=== PATIENT | male | born 1960 | race Caucasian/White ===

== ENCOUNTER 2021-06-02 13:55 | Observation (INO) | payer OTHER ==
[2021-06-02] MEDS ORDERED: ONDANSETRON 4 MG/2 ML VIAL IVP STA (14:28)
[2021-06-02] MEDS ORDERED: SODIUM CHLORIDE 0.9% 1,000 ML IV ONE ×2 (14:29→16:47)
[2021-06-02 15:28] LABS: Basophils % (A) 0 %; Eosinophils # (A) 0.1 k/uL (0-0.7); Eosinophils % (A) 1 %; HCT 37.9 % (39.0-53.0); HGB 12.9 gm/dL (13.0-17.5); Lymphocytes # (A) 1.4 k/uL (1.0-4.8); Lymphocytes % (A) 17 %; MCHC 34.1 g/dL (31.0-37.0); Mean Platelet Volume 7.2; Monocytes # (A) 0.5 k/uL (0-1.0); Monocytes % (A) 7 %; Neutrophils # (A) 5.9 k/uL (1.3-7.7); Neutrophils % (A) 73 %; Platelet Count 223 k/uL (150-450); RBC 4.63 m/uL (4.30-5.90); WBC 8.1 k/uL (3.8-10.6)
[2021-06-02 15:42] LABS: ALT 20 U/L (4-49); AST 27 U/L (17-59); African American GFR (CKD) 34 (>60 ml/min/1.73 sqM); Albumin 3.3 g/dL (3.5-5.0); Alcohol <10 mg/dL; Alkaline Phosphatase 90 U/L (38-126); Amylase 40 U/L (30-110); Anion Gap 10 mmol/L; Blood Urea Nitrogen 48 mg/dL (9-20); Calcium 8.7 mg/dL (8.4-10.2); Carbon Dioxide 26 mmol/L (22-30); Chloride 94 mmol/L (98-107); Glucose 118 mg/dL (74-99); Lipase 52 U/L (23-300); Non-African American GFR(CKD) 30 (>60 ml/min/1.73 sqM); Potassium 4.1 mmol/L (3.5-5.1); Sodium 130 mmol/L (137-145); Total Bilirubin 0.5 mg/dL (0.2-1.3); Total Protein 5.8 g/dL (6.3-8.2)
[2021-06-02 16:38] LABS: Appearance,Urine Clear (Clear); Bilirubin,Urine Negative (Negative); Blood,Urine Negative (Negative); Color,Urine Yellow; Glucose,Urine (UA) Trace (Negative); Hyaline Casts,Urine 1 /lpf (0-2); Ketones,Urine Negative (Negative); Leukocyte Esterase,Urine Negative (Negative); Mucus,Urine Rare /hpf; Nitrite,Urine Negative (Negative); Protein,Urine 3+ (Negative); RBC,Urine 1 /hpf (0-5); Specific Gravity,Urine 1.012 (1.001-1.035); Urobilinogen,Urine <2.0 mg/dL (<2.0); WBC,Urine 1 /hpf (0-5)
[2021-06-02 16:46] LABS: Amphetamine Screen,Urine Not Detected (NotDetected); Barbiturate Screen,Urine Not Detected (NotDetected); Benzodiazepines Screen,Urine Not Detected (NotDetected); Cocaine Screen,Urine Not Detected (NotDetected); Methadone Screen, Urine Not Detected (NotDetected); Opiate Screen,Urine Not Detected (NotDetected); Oxycodone Screen, Urine Not Detected (NotDetected); Phencyclidine Screen,Urine Not Detected (NotDetected); Tricyclic Antidepressant,Urine Not Detected (NotDetected); Urn Cannabinoid Scrn Detected (NotDetected)
[2021-06-02] MEDS ORDERED: NALOXONE 0.4 MG/ML 1 ML VIAL IV PRN (16:47)
[2021-06-02 17:55] LABS: Glucose,Whole Blood 76 mg/dL (75-99)
[2021-06-02] MEDS: INSULIN ASPART (NovoLOG) 100 UNIT/ML VIAL SQ SCH (17:55)
[2021-06-02] MEDS ORDERED: MELATONIN 5 MG TABLET PO PRN (17:57)
[2021-06-02] MEDS ORDERED: MECLIZINE 25 MG TAB PO PRN (17:57)
--- NOTE | 2021-06-02 17:57 | ED ---
General Adult HPI - General Chief complaint: Nausea/Vomiting/Diarrhea Stated complaint: dehydration/vomiting Time Seen by Provider: 06/02/21 14:12 Source: patient, EMS, RN notes reviewed, old records reviewed Mode of arrival: EMS Limitations: no limitations - History of Present Illness Initial comments: I evaluated the patient when he was placed in a room. Patient is a 60-year-old male with past medical history remarkable for depression, diabetes, CAD, angina, eye surgery with chronic vertigo and nausea and vomiting presents emergency department over concern for possible dehydration. Patient has been having chronic vertiginous symptoms. He states there were worse last week and is also developing what he thought was a stomach bug. States she was having some diarrhea as well as nausea and vomiting. He states that the symptoms have improved, however he was sent here to be evaluated. He denies any current abdominal pain, nausea, vomiting. Denies any current diarrhea. He states he has been having less by mouth intake over this period of time. Denies any chest pain, shortness of breath. Denies any headaches, lightheadedness. Patient seems most concerned with recent onset depression, and states that he is concerned about his depression at this time. He used to see a therapist but has not followed up with one in quite some time. Denies any suicidal, homicidal ideations. Denies any visual or auditory hallucinations. He has no other acute complaint at this time. - Related Data Home Medications Medication Instructions Recorded Confirmed ARIPiprazole [Abilify] 2 mg PO HS@199906/02/21 06/02/21 Aspirin EC [Ecotrin Low Dose] 81 mg PO DAILY@0800 06/02/21 06/02/21 Atorvastatin [Lipitor] 80 mg PO HS@199906/02/21 06/02/21 Chlorhexidine Gluconate [Hibiclens] 1 applic TOPICAL HS@199906/02/21 06/02/21 Furosemide [Lasix] 20 mg PO DAILY@0800 06/02/21 06/02/21 Gabapentin [Neurontin] 100 mg PO HS@199906/02/21 06/02/21 Insulin Glargine,Hum.rec.anlog 24 units SQ HS@199906/02/21 06/02/21 [Tye Urias] Insulin Lispro [humaLOG Kwikpen] See Protocol SQ AC-TID 06/02/21 06/02/21 Isosorbide Mononitrate ER [Imdur] 30 mg PO DAILY@0800 06/02/21 06/02/21 Loratadine-Pseudoeph 10-240 mg 1 tab PO DAILY@0800 06/02/21 06/02/21 [Claritin-D 24 Hour] Losartan Potassium 100 mg PO DAILY@0800 06/02/21 06/02/21 Meclizine [Antivert] 25 mg PO TID PRN 06/02/21 06/02/21 Melatonin 10 mg PO HS PRN 06/02/21 06/02/21 Metoprolol Succinate (ER) [Toprol 100 mg PO DAILY@0800 06/02/21 06/02/21 Xl] Sertraline [Zoloft] 100 mg PO DAILY@0800 06/02/21 06/02/21 Tamsulosin HCl [Flomax] 0.4 mg PO DAILY@0800 06/02/21 06/02/21 hydroCHLOROthiazide [Hydrodiuril] 50 mg PO DAILY@0800 06/02/21 06/02/21 metFORMIN HCL [Glucophage] 1,000 mg PO AC-BID@0800,1700 06/02/21 06/02/21 Allergies Allergy/AdvReac Type Severity Reaction Status Date / Time No Known Allergies Allergy Verified 06/02/21 17:03 Review of Systems ROS Statement: Those systems with pertinent positive or pertinent negative responses have been documented in the HPI. Review of Systems: CONST: Denies fever EYES: Denies blurry vision ENT: Denies nasal congestion C/V: Denies Chest pain RESP: Denies shortness of breath GI: Denies abdominal pain : Denies dysuria SKIN: Denies rash. MSK: Denies joint pain. NEURO: Denies headache PSYCH: Denies suicidal and homicidal ideations/plans/attempts. Denies visual or auditory hallucinations. He endorses depression ROS Other: All systems not noted in ROS Statement are negative. Past Medical History Past Medical History: Coronary Artery Disease (CAD), Chest Pain / Angina, Diabetes Mellitus, Syncope Additional Past Medical History / Comment(s): Sleep Apnea History of Any Multi-Drug Resistant Organisms: None Reported Past Surgical History: Coronary Bypass/CABG Additional Past Surgical History / Comment(s): CABG in 2013 Past Psychological History: Anxiety, Depression Smoking Status: Never smoker Past Alcohol Use History: None Reported Past Drug Use History: None Reported General Exam - General Exam Comments Initial Comments: General: Appears in no acute distress. HEAD: Normal with no signs of head trauma. EYES: PERRLA, EOMI, conjunctiva normal, no discharge. Pupils are 3 mm and equal bilaterally. Patient has poor visual acuity at baseline secondary to prior eye surgeries. ENT: Hearing grossly intact, normal oropharynx. RESPIRATORY: Clear breath sounds bilaterally. No wheezes, rales, or rhonchi. C/V: Regular rate and rhythm. S1 and S2 auscultated, no edema, peripheral pulses 2+ and intact throughout ABD: Abd is soft, nontender, nondistended EXT: Normal range of motion, no obvious deformity SKIN: No rashes or lesions observed on exposed skin. Old shins skin abrasions. NEURO: Alert and oriented x 4. Cranial nerves II-XII intact. No focal sensory or strength deficits. NIH is 0. GCS is 15. Limitations: no limitations Course Vital Signs 06/02/21 06/02/21 14:04 15:15 Temperature 98 F Pulse Rate 77 76 Respiratory 18 18 Rate Blood Pressure 148/75 126/71 O2 Sat by Pulse 100 98 Oximetry Medical Decision Making - Medical Decision Making Based on the patient's presentation and physical exam, I'm concerned for acute dehydration as he has not been staying hydrated per the patient over the last few days. This is secondary to what is likely a viral gastroenteritis. However due to his history of diabetes, we will obtain basic laboratory studies. He otherwise is asymptomatic at this time. He is requesting to talk with cheryl thapa. I believe this is reasonable. He will be given a 1 L fluid bolus as well as Zofran at this time. Patient's laboratory studies were remarkable for a normocytic anemia with a hemoglobin of 10.9. Patient has mild hyponatremia of 130 mild hypochloremia of 94. Patient has an elevated BUN/creatinine 40 and 2.2 without a history of CK D per patient. Unknown baseline. Patient's urinalysis is unremarkable. Marijuana is found in the UDS. Alcohol level is negative. Negative acetones. Reevaluation come patient is time by mouth intake at this time. I did inform him that I would like to admit him to the hospital for IV hydration and for psychiatry to evaluate the patient. He was in agreement with this plan. I spoke with the admitting physician under Dr. Gregory who accepted the p atient. Patient was therefore admitted in serous condition. I will consult psychiatry to evaluate the patient on an inpatient basis. - Lab Data Result diagrams: 06/02/21 15:20 06/02/21 15:20 Lab Results 06/02/21 06/02/21 06/02/21 Range/Units 15:20 15:20 16:24 WBC 8.1 (3.8-10.6) k/uL RBC 4.63 (4.30-5.90) m/uL Hgb 12.9 L (13.0-17.5) gm/dL Hct 37.9 L (39.0-53.0) % MCV 82.0 (80.0-100.0) fL MCH 28.0 (25.0-35.0) pg MCHC 34.1 (31.0-37.0) g/dL RDW 13.0 (11.5-15.5) % Plt Count 223 (150-450) k/uL MPV 7.2 Neutrophils % 73 % Lymphocytes % 17 % Monocytes % 7 % Eosinophils % 1 % Basophils % 0 % Neutrophils # 5.9 (1.3-7.7) k/uL Lymphocytes # 1.4 (1.0-4.8) k/uL Monocytes # 0.5 (0-1.0) k/uL Eosinophils # 0.1 (0-0.7) k/uL Basophils # 0.0 (0-0.2) k/uL Sodium 130 L (137-145) mmol/L Potassium 4.1 (3.5-5.1) mmol/L Chloride 94 L (98-107) mmol/L Carbon Dioxide 26 (22-30) mmol/L Anion Gap 10 mmol/L BUN 48 H (9-20) mg/dL Creatinine 2.28 H (0.66-1.25) mg/dL Est GFR (CKD-EPI)AfAm 34 (>60 ml/min/1.73 sqM) Est GFR (CKD-EPI)NonAf 30 (>60 ml/min/1.73 sqM) Glucose 118 H (74-99) mg/dL Calcium 8.7 (8.4-10.2) mg/dL Total Bilirubin 0.5 (0.2-1.3) mg/dL AST 27 (17-59) U/L ALT 20 (4-49) U/L Alkaline Phosphatase 90 (38-126) U/L Total Protein 5.8 L (6.3-8.2) g/dL Albumin 3.3 L (3.5-5.0) g/dL Amylase 40 (30-110) U/L Lipase 52 (23-300) U/L Urine Color Yellow Urine Appearance Clear (Clear) Urine pH 6.0 (5.0-8.0) Ur Specific [place] 1.012 (1.001-1.035) Urine Protein 3+ H (Negative) Urine Glucose (UA) Trace H (Negative) Urine Ketones Negative (Negative) Urine Blood Negative (Negative) Urine Nitrite Negative (Negative) Urine Bilirubin Negative (Negative) Urine Urobilinogen <2.0 (<2.0) mg/dL Ur Leukocyte Esterase Negative (Negative) Urine RBC 1 (0-5) /hpf Urine WBC 1 (0-5) /hpf Hyaline Casts 1 (0-2) /lpf Urine Mucus Rare H (None) /hpf Urine Opiates Screen (NotDetected) Ur Oxycodone Screen (NotDetected) Urine Methadone Screen (NotDetected) Ur Propoxyphene Screen (NotDetected) Ur Barbiturates Screen (NotDetected) U Tricyclic Antidepress (NotDetected) Ur Phencyclidine Scrn (NotDetected) Ur Amphetamines Screen (NotDetected) U Methamphetamines Scrn (NotDetected) U Benzodiazepines Scrn (NotDetected) Urine Cocaine Screen (NotDetected) U Marijuana (THC) Screen (NotDetected) Serum Alcohol <10 mg/dL Acetone, Qual Negative (Negative) 06/02/21 Range/Units 16:24 WBC (3.8-10.6) k/uL RBC (4.30-5.90) m/uL Hgb (13.0-17.5) gm/dL Hct (39.0-53.0) % MCV (80.0-100.0) fL MCH (25.0-35.0) pg MCHC (31.0-37.0) g/dL RDW (11.5-15.5) % Plt Count (150-450) k/uL MPV Neutrophils % % Lymphocytes % % Monocytes % % Eosinophils % % Basophils % % Neutrophils # (1.3-7.7) k/uL Lymphocytes # (1.0-4.8) k/uL Monocytes # (0-1.0) k/uL Eosinophils # (0-0.7) k/uL Basophils # (0-0.2) k/uL Sodium (137-145) mmol/L Potassium (3.5-5.1) mmol/L Chloride (98-107) mmol/L Carbon Dioxide (22-30) mmol/L Anion Gap mmol/L BUN (9-20) mg/dL Creatinine (0.66-1.25) mg/dL Est GFR (CKD-EPI)AfAm (>60 ml/min/1.73 sqM) Est GFR (CKD-EPI)NonAf (>60 ml/min/1.73 sqM) Glucose (74-99) mg/dL Calcium (8.4-10.2) mg/dL Total Bilirubin (0.2-1.3) mg/dL AST (17-59) U/L ALT (4-49) U/L Alkaline Phosphatase (38-126) U/L Total Protein (6.3-8.2) g/dL Albumin (3.5-5.0) g/dL Amylase (30-110) U/L Lipase (23-300) U/L Urine Color Urine Appearance (Clear) Urine pH (5.0-8.0) Ur Specific [place] (1.001-1.035) Urine Protein (Negative) Urine Glucose (UA) (Negative) Urine Ketones (Negative) Urine Blood (Negative) Urine Nitrite (Negative) Urine Bilirubin (Negative) Urine Urobilinogen (<2.0) mg/dL Ur Leukocyte Esterase (Negative) Urine RBC (0-5) /hpf Urine WBC (0-5) /hpf Hyaline Casts (0-2) /lpf Urine Mucus (None) /hpf Urine Opiates Screen Not Detected (NotDetected) Ur Oxycodone Screen Not Detected (NotDetected) Urine Methadone Screen Not Detected (NotDetected) Ur Propoxyphene Screen Not Detected (NotDetected) Ur Barbiturates Screen Not Detected (NotDetected) U Tricyclic Antidepress Not Detected (NotDetected) Ur Phencyclidine Scrn Not Detected (NotDetected) Ur Amphetamines Screen Not Detected (NotDetected) U Methamphetamines Scrn Not Detected (NotDetected) U Benzodiazepines Scrn Not Detected (NotDetected) Urine Cocaine Screen Not Detected (NotDetected) U Marijuana (THC) Screen Detected H (NotDetected) Serum Alcohol mg/dL Acetone, Qual (Negative) Disposition Clinical Impression: JOSSUE (acute kidney injury), Dehydration, Depression, Encounter for psychiatric assessment Disposition: ADMITTED IP TO THIS [facility] Condition: Stable Referrals: Casper Murcia MD [Primary Care Provider] - 1-2 days
[2021-06-02] MEDS: ATORVASTATIN 80 MG TAB PO SCH (21:47)
[2021-06-02] MEDS: SODIUM CHLORIDE 0.9% 1,000 ML IV SCH (21:49)
[2021-06-02] MEDS: ARIPiprazole 2 MG TAB PO SCH (22:07)
[2021-06-02] MEDS: GABAPENTIN 100 MG CAP PO SCH (22:07)
[2021-06-02 23:35] LABS: Glucose,Whole Blood 71 mg/dL (75-99)
--- NOTE | 2021-06-03 03:38 | P.HPIM ---
History of Present Illness H&P Date: 06/02/21 Chief Complaint: Dehydration 60-year-old male with diabetes mellitus, coronary artery disease, chronic vertigo Patient has been dealing with GI symptoms for about 4-5 days reporting some nausea vomiting and diarrhea denies any GI bleeding. He said all the symptoms started after having the flu shot last week. The symptoms persisted up until yesterday was associated with poor by mouth intake. He was evaluated by his visiting doctor today and he was told that he is dehydrated and should go to the hospital for evaluation. Patient also reports chronic vertigo symptoms since he had some corrective eye surgery that went wrong and was complicated until eventually he had to see a different eye doctor to perform another surgery to fix his lens however despite that he continued to have episodes of vertigo. Currently he denies any dizziness or lightheadedness he denies any vertigo symptoms. He denies any ongoing nausea vomiting or diarrhea. He denies any abdominal pain chest pain or shortness of breath. He does report decreased by mouth intake. His main concern is depressed mood he feels overwhelmed helpless and hopeless. He denies any suicidal or homicidal ideation he denies any auditory or visual hallucinations. He's been trying to see a psychiatrist or therapist for a while however he cannot afford to do that. He's been feeling fatigued with poor sleep quality and decreased by mouth intake. But again he denies any suicidal ideation He has been diabetic for a long time he is on insulin. 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 He denies any lesions or wounds over his feet Patient also complains of PTSD and anxiety since he had that faulty eye surgery. In the ED blood work showed acute kidney injury with possible dehydration. EKG was normal sinus rhythm. Hemoglobin 12.9, sodium was 1:30 Review of Systems Pertinent positives as noted in HPI. All other systems were reviewed and are negative Past Medical History Past Medical History: Coronary Artery Disease (CAD), Chest Pain / Angina, Diabetes Mellitus, Syncope Additional Past Medical History / Comment(s): Sleep Apnea History of Any Multi-Drug Resistant Organisms: None Reported Past Surgical History: Coronary Bypass/CABG Additional Past Surgical History / Comment(s): CABG in 2013 Past Psychological History: Anxiety, Depression Smoking Status: Never smoker Past Alcohol Use History: None Reported Past Drug Use History: None Reported - Past Family History Family Family Medical History: No Reported History Medications and Allergies Home Medications Medication Instructions Recorded Confirmed Type ARIPiprazole [Abilify] 2 mg PO HS@199906/02/21 06/02/21 History Aspirin EC [Ecotrin Low Dose] 81 mg PO DAILY@0800 06/02/21 06/02/21 History Atorvastatin [Lipitor] 80 mg PO HS@199906/02/21 06/02/21 History Chlorhexidine Gluconate [Hibiclens] 1 applic TOPICAL HS@199906/02/21 06/02/21 History Furosemide [Lasix] 20 mg PO DAILY@0806/02/21 06/02/21 History Gabapentin [Neurontin] 100 mg PO HS@199906/02/21 06/02/21 History Insulin Glargine,Hum.rec.anlog 24 units SQ HS@199906/02/21 06/02/21 History [[place] [employer] Solostar] Insulin Lispro [humaLOG Kwikpen] See Protocol SQ AC-TID 06/02/21 06/02/21 History Isosorbide Mononitrate ER [Imdur] 30 mg PO DAILY@0800 06/02/21 06/02/21 History Loratadine-Pseudoeph 10-240 mg 1 tab PO DAILY@0800 06/02/21 06/02/21 History [Claritin-D 24 Hour] Losartan Potassium 100 mg PO DAILY@0800 06/02/21 06/02/21 History Meclizine [Antivert] 25 mg PO TID PRN 06/02/21 06/02/21 History Melatonin 10 mg PO HS PRN 06/02/21 06/02/21 History Metoprolol Succinate (ER) [Toprol 100 mg PO DAILY@0800 06/02/21 06/02/21 History Xl] Sertraline [Zoloft] 100 mg PO DAILY@0800 06/02/21 06/02/21 History Tamsulosin HCl [Flomax] 0.4 mg PO DAILY@0800 06/02/21 06/02/21 History hydroCHLOROthiazide [Hydrodiuril] 50 mg PO DAILY@0800 06/02/21 06/02/21 History metFORMIN HCL [Glucophage] 1,000 mg PO AC-BID@0800,1700 06/02/21 06/02/21 History Allergies Allergy/AdvReac Type Severity Reaction Status Date / Time No Known Allergies Allergy Verified 06/02/21 17:03 Physical Exam Vitals: Vital Signs Temp Pulse Resp BP Pulse Ox 06/02/21 18:00 77 18 98 06/02/21 17:00 76 18 98 06/02/21 16:00 72 18 98 06/02/21 15:15 76 18 126/71 98 06/02/21 14:04 98 F 77 18 148/75 100 Intake and Output 06/02/21 06/02/21 06/02/21 06:59 14:59 22:59 Other: Weight 78.925 kg Constitutional: No acute distress, conversant, pleasant Eyes: Anicteric sclerae, moist conjunctiva, Pupils equal round reactive to light ENMT: NC/AT Oropharynx clear, no erythema, or exudates Neck: Supple, FROM, no masses, or JVD No carotid bruits No thyromegaly Lungs: Clear to auscultation Clear to percussion Normal respiratory effort, no accessory muscle use Cardiovascular: Heart regular in rate and rhythm, No murmurs, gallops, or rubs No peripheral edema Abdominal: Soft Nontender, no guarding, rebound or rigidity Abdomen moving with respiration Normoactive bowel sounds No hepatomegaly, No splenomegaly No palpable mass No abdominal wall hernia noted Skin: Normal temperature, tone, texture, turgor No induration No subcutaneous nodules No rash, lesions No ulcers Extremities: No digital cyanosis No clubbing Pedal pulses intact and symmetrical Radial pulses intact and symmetrical No calf tenderness Psychiatric: Alert and oriented to person, place and time Appropriate affect fair judgement Neuro Muscles Strength 5/5 in all 4 extremities Sensation to light touch grossly present throughout Cranial nerves II-XII grossly intact No focal sensory deficits Lymphatics: no palpable cervical or supraclavicular , or inguinal lymph nodes Results CBC & Chem 7: 06/02/21 15:20 06/02/21 15:20 Labs: Abnormal Lab Results - Last 24 Hours (Table) 06/02/21 06/02/21 06/02/21 Range/Units 15:20 15:20 16:24 Hgb 12.9 L (13.0-17.5) gm/dL Hct 37.9 L (39.0-53.0) % Sodium 130 L (137-145) mmol/L Chloride 94 L (98-107) mmol/L BUN 48 H (9-20) mg/dL Creatinine 2.28 H (0.66-1.25) mg/dL Glucose 118 H (74-99) mg/dL Total Protein 5.8 L (6.3-8.2) g/dL Albumin 3.3 L (3.5-5.0) g/dL Urine Protein 3+ H (Negative) Urine Glucose (UA) Trace H (Negative) Urine Mucus Rare H (None) /hpf U Marijuana (THC) Screen (NotDetected) 06/02/21 Range/Units 16:24 Hgb (13.0-17.5) gm/dL Hct (39.0-53.0) % Sodium (137-145) mmol/L Chloride (98-107) mmol/L BUN (9-20) mg/dL Creatinine (0.66-1.25) mg/dL Glucose (74-99) mg/dL Total Protein (6.3-8.2) g/dL Albumin (3.5-5.0) g/dL Urine Protein (Negative) Urine Glucose (UA) (Negative) Urine Mucus (None) /hpf U Marijuana (THC) Screen Detected H (NotDetected) Assessment and Plan Assessment: Acute kidney injury most likely secondary to prerenal ATN from dehydration and decreased by mouth intake Recent acute gastritis symptoms resolved Hypovolemic Hyponatremia Supportive care Avoid nephrotoxic meds IV fluid hydration with normal saline Monitor urine output Monitor renal function Depressed mood Denies suicidal ideation Psych consultation Diabetes mellitus Hold oral hypoglycemic agent Insulin sliding scale Check A1c History of CAD resume home medications Patient denies any tobacco smoking illegal drugs or chronic alcohol use Patient is full code Anticipated length of stay less than 2 midnights Anticipated discharged, pending clinical course and psych eval DVT prophylaxis heparin subcu 3 times a day
[2021-06-03] MEDS: SODIUM CHLORIDE 0.9% 1,000 ML IV SCH ×2 (05:20→12:41)
[2021-06-03 07:24] LABS: Glucose,Whole Blood 115 mg/dL (75-99)
[2021-06-03] MEDS: INSULIN ASPART (NovoLOG) 100 UNIT/ML VIAL SQ SCH ×3 (07:39→17:42)
[2021-06-03] MEDS ORDERED: FUROSEMIDE 20 MG TAB PO SCH (08:00)
[2021-06-03] MEDS ORDERED: metFORMIN 500 MG TAB PO SCH (08:00)
[2021-06-03] MEDS ORDERED: LOSARTAN 50 MG TAB PO SCH (08:00)
[2021-06-03 08:26] LABS: African American GFR (CKD) 44 (>60 ml/min/1.73 sqM); Anion Gap 8 mmol/L; Blood Urea Nitrogen 41 mg/dL (9-20); Calcium 8.2 mg/dL (8.4-10.2); Carbon Dioxide 25 mmol/L (22-30); Chloride 98 mmol/L (98-107); Glucose 104 mg/dL (74-99); Magnesium 1.6 mg/dL (1.6-2.3); Non-African American GFR(CKD) 38 (>60 ml/min/1.73 sqM); Potassium 3.9 mmol/L (3.5-5.1); Sodium 131 mmol/L (137-145)
[2021-06-03 08:32] LABS: Basophils % (A) 0 %; Eosinophils # (A) 0.1 k/uL (0-0.7); Eosinophils % (A) 2 %; HCT 35.4 % (39.0-53.0); HGB 12.5 gm/dL (13.0-17.5); Hyperchromasia Slight; Lymphocytes # (A) 1.3 k/uL (1.0-4.8); Lymphocytes % (A) 15 %; MCH 28.3 pg (25.0-35.0); MCHC 35.3 g/dL (31.0-37.0); MCV 80.3 fL (80.0-100.0); Mean Platelet Volume 7.3; Monocytes # (A) 0.6 k/uL (0-1.0); Monocytes % (A) 7 %; Neutrophils # (A) 6.2 k/uL (1.3-7.7); Neutrophils % (A) 74 %; Platelet Count 200 k/uL (150-450); RBC 4.41 m/uL (4.30-5.90); RDW 13.4 % (11.5-15.5); WBC 8.5 k/uL (3.8-10.6)
[2021-06-03] MEDS: ISOSORBIDE MONONITRATE ER 30 MG TAB.ER.24H PO SCH (10:11)
[2021-06-03] MEDS: METOPROLOL SUCCINATE (ER) 100 MG TAB.ER.24H PO SCH (10:11)
[2021-06-03] MEDS: TAMSULOSIN 0.4 MG CAP.ER.24H PO SCH (10:11)
[2021-06-03] MEDS: LORATADINE-PSEUDOEPH 5-120 MG 1 EACH TAB.ER.12H PO SCH ×2 (10:11→20:44)
[2021-06-03] MEDS: ASPIRIN 81 MG PO SCH (10:11)
[2021-06-03] MEDS: SERTRALINE 100 MG TAB PO SCH (10:12)
[2021-06-03 12:07] LABS: Glucose,Whole Blood 112 mg/dL (75-99)
--- NOTE | 2021-06-03 12:13 | P.PN ---
Subjective Patient is complaining of having diarrhea today. I asked him how many bowel movements a day but he has since yesterday he told the only one. He denies any blood in his stool. No abdominal pain. Objective - Vital Signs Vital signs: Vital Signs Temp 97.5 F L 06/03/21 04:35 Pulse 80 06/03/21 04:35 Resp 20 06/03/21 04:35 BP 177/91 06/03/21 04:35 Pulse Ox 97 06/03/21 04:35 Intake & Output 06/02/21 06/03/21 06/03/21 18:59 06:59 18:59 Intake Total 100 Balance 100 Weight 78.925 kg 78.925 kg Intake: Oral 100 Other: Voiding Method Toilet # Voids 1 - Exam General: The patient is awake and alert, in no distress Eye: there is normal conjunctiva bilaterally. Neck: The neck is supple, there is no JVD. Cardiovascular: Normal S1-S2, no S3-S4, no murmurs. Respiratory: Lungs clear to auscultation bilaterally Gastrointestinal: Abdomen is soft, nontender Musculoskeletal: There is no pedal edema. Neurological:. Speech is normal. Skin: Skin is warm and dry - Labs CBC & Chem 7: 06/03/21 07:30 06/03/21 07:30 Labs: Abnormal Lab Results - Last 24 Hours (Table) 06/02/21 06/02/21 06/02/21 Range/Units 15:20 15:20 16:24 Hgb 12.9 L (13.0-17.5) gm/dL Hct 37.9 L (39.0-53.0) % Sodium 130 L (137-145) mmol/L Chloride 94 L (98-107) mmol/L BUN 48 H (9-20) mg/dL Creatinine 2.28 H (0.66-1.25) mg/dL Glucose 118 H (74-99) mg/dL POC Glucose (mg/dL) (75-99) mg/dL Calcium (8.4-10.2) mg/dL Total Protein 5.8 L (6.3-8.2) g/dL Albumin 3.3 L (3.5-5.0) g/dL Urine Protein 3+ H (Negative) Urine Glucose (UA) Trace H (Negative) Urine Mucus Rare H (None) /hpf U Marijuana (THC) Screen (NotDetected) 06/02/21 06/02/21 06/03/21 Range/Units 16:24 23:33 07:22 Hgb (13.0-17.5) gm/dL Hct (39.0-53.0) % Sodium (137-145) mmol/L Chloride (98-107) mmol/L BUN (9-20) mg/dL Creatinine (0.66-1.25) mg/dL Glucose (74-99) mg/dL POC Glucose (mg/dL) 71 L 115 H (75-99) mg/dL Calcium (8.4-10.2) mg/dL Total Protein (6.3-8.2) g/dL Albumin (3.5-5.0) g/dL Urine Protein (Negative) Urine Glucose (UA) (Negative) Urine Mucus (None) /hpf U Marijuana (THC) Screen Detected H (NotDetected) 06/03/21 06/03/21 06/03/21 Range/Units 07:30 07:30 12:05 Hgb 12.5 L (13.0-17.5) gm/dL Hct 35.4 L (39.0-53.0) % Sodium 131 L (137-145) mmol/L Chloride (98-107) mmol/L BUN 41 H (9-20) mg/dL Creatinine 1.87 H (0.66-1.25) mg/dL Glucose 104 H (74-99) mg/dL POC Glucose (mg/dL) 112 H (75-99) mg/dL Calcium 8.2 L (8.4-10.2) mg/dL Total Protein (6.3-8.2) g/dL Albumin (3.5-5.0) g/dL Urine Protein (Negative) Urine Glucose (UA) (Negative) Urine Mucus (None) /hpf U Marijuana (THC) Screen (NotDetected) Assessment and Plan Assessment: This is a 60-year-old male with complex past medical history noted below presented to the hospital with nausea/vomiting and dehydration . Patient was evaluated in the ER and admitted to the hospital for further management of his medical problems noted below. 1. Acute kidney injury. Baseline creatinine unknown. Continue IV fluid hydration and repeat lab work in the morning. Check bladder scan to rule out retention. Also kidney ultrasound to rule out hydronephrosis 2. Hypovolemic hyponatremia 3. Depression without suicidal ideation. Psychiatry consulted by admitting provider 4. Type 2 diabetes, continue sliding scale insulin and hold oral agents 5. Coronary artery disease Today, I reviewed his medication list and lab work results. Continue current regimen. Repeat lab work in the morning.
--- NOTE | 2021-06-03 13:44 | P.CN ---
Psychiatric Consult - . Consult date: 06/03/21 Consult:: IDENTIFYING DATA: The patient is 60-year-old male is currently a resident at [facility] HISTORY OF PRESENT ILLNESS: He presented to the ED on 06/02/2021 with complaints of chronic vertigo, nausea, vomiting and diarrhea. During his assessment in the ED he requested to speak with a psychiatrist. He was evaluated and admitted to the medical unit for evaluation and management of dehydration. I reviewed the medical record and interviewed the patient. He complained about his living situation and the abrupt changes in his life since he moved into [facility]. He stated that he was living independently in the apartment at [facility] for several years. He was working gainfully full-time and managing his own life. 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 He talked about having difficulties with walking down the stairs in the apartment (he lives on the second floor), shopping, cooking, reading food packaging and falling. His difficulties with independence progress to where his brother, who lives in [place], was spending more and more time in [place] caring for him. The patient stated that his brother is on the board for [facility] and recommended placement at [facility] or helpless assisted living. He has no complaints about the services provided at the assisted living center. However, he has difficulty with living in a small room and sharing the communal areas with other residents who are much lower functioning than him. Another source of his distress to his difficulty with continuing to meet with a therapist via telehealth. His diabetic group in [place] has a therapist whom he met one to one when he was living in [place]. He tried to continue with the service but the Internet connection at [facility] was not adequate. He described increasing feelings of helplessness and hopelessness. He finds himself withdrawing to his room and sleeping more during the day that he had the past. He described other symptoms of depression such as decreased energy and decreased enjoyment in usual activities. He specifically denied that he was experiencing suicidal ideation, attempt or plan. He denied persistent and uncontrolled anxiety, panic attack, obsessions or compulsions. He denied experiencing periods of elevated mood or sustained irritability suggestive of linette or hypomania. He denied experiencing psychotic symptoms such as paranoia, hallucinations or confusion. He does not drink or use drugs on his own. PAST PSYCHIATRIC HISTORY: He had no history of psychiatric treatment until the decline in his health. Approximately December of this year he expressed what he described as hopelessness feelings to his brother will interpret them and suicidal thoughts and referred him for admission to [facility]. He described his experience at [facility] psychiatric facility as extremely traumatic. He denied other psychiatric hospitalizations. He has never met with a psychiatrist outside of his stay at [facility]. As mentioned above, he met with a therapist through his diabetic group in [place]. PAST MEDICAL HISTORY: He has multiple medical problems including coronary artery disease, diabetes mellitus, decreased hearing, impaired vision and chronic vertigo. ALLERGIES: Known drug ALLERGIES SUBSTANCE USE HISTORY: History of substance use problems FAMILY PSYCHIATRIC/SUBSTANCE USE HISTORY: Over family history of mental illness SOCIAL HISTORY: Is born and raised in [place]. He graduated high school and eventually received a bachelor's degree in [employer] from [employer]. He has been and twice. He has 1 biological son and one adopted daughter. He worked in [place] for most of his working life. He moved from his apartment to assisted living in January 2021. He talked about having been incarcerated in the past for traffic-related violations. His brother has DURABLE POWER OF MAGNETIC GRINDER OPERATOR. MENTAL STATUS EXAM: He presented as a casually groomed 60-year-old male who is resting comfortably in his hospital bed. He made eye contact and attended to the interview. He had no distinction features are prominent physical abnormalities. He had a bright facial expression. He was alert and oriented to person, place and time. He has slight psychomotor retardation but no abnormal involuntary movements. I did not evaluate his gait. His speech was spontaneous with slight decrease in rate and rhythm. He had no articulation difficulties. His affect was depressed but reactive. He denied suicidal ideation or wishes. He denied homicidal ideation. He expressed feelings of helplessness but denied worthlessness or hopelessness. He ruminated about his medical problems and a general decline in his ability to care for himself over the last 6-12 months. He did not express ideas reference, paranoid ideation or delusions. His thinking was abstract and associations were coherent, logical goal-directed. He denied hallucinations and did not appear to responding to internal stimuli. Global impression of intellect is average to a evaristo. He is aware of his illnesses and need for treatment. IMPRESSIONS: He is a male presented to [facility] with nausea, vomiting and diarrhea and was admitted for a minimum of acute dehydration. He requested a psychiatric consult and complained of feelings of depression and the loss of ability to care for himself that resulted in placement in an assisted-living program. He is unhappy with the assisted-living but does not at the current time have alternatives. He was meeting with therapist but could not continue [id number] meetings when he moved from [place] to [facility]. In addition, the Internet connection at [facility] would not allow telehealth. He would benefit from continued outpatient mental health treatment and should be referred for outpatient individual therapy. 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 RECOMMENDATION: There is no indication for admission to the psychiatric unit. He has decision-making capacity at this time and is able to reason through communicate/pressure risk, benefits and alternatives to treatment. Continue Zoloft 100 mg daily. Consult social work for referral for outpatient mental health services. Thank you for this consult. Psychiatry will sign off on the case. 06/03/21 13:21
[2021-06-03] MEDS: LOPERAMIDE 2 MG CAP PO PRN ×2 (16:05→23:14)
[2021-06-03 17:14] LABS: Glucose,Whole Blood 188 mg/dL (75-99)
--- NOTE | 2021-06-03 17:40 | US ---
EXAMINATION TYPE: US kidneys/renal and bladder DATE OF EXAM: 06/03/2021 COMPARISON: NONE CLINICAL HISTORY: JOSSUE. Inpatient for dehydration due to diarrhea per patient. EXAM MEASUREMENTS: Right Kidney: 11.3 x 8.1 x 6.2 cm Left Kidney: 12.8 x 6.8 x 5.6 cm Post Void Residual Volume: not assessed on inpatient Right Kidney: No hydronephrosis or masses seen Left Kidney: No hydronephrosis or masses seen Bladder: wnl Bilateral Jets seen: yes IMPRESSION: Normal exam. No evidence of renal mass or obstruction.
[2021-06-03 20:43] LABS: Glucose,Whole Blood 234 mg/dL (75-99)
[2021-06-03] MEDS: ATORVASTATIN 80 MG TAB PO SCH (20:43)
[2021-06-03] MEDS: ARIPiprazole 2 MG TAB PO SCH (20:43)
[2021-06-03] MEDS: GABAPENTIN 100 MG CAP PO SCH (20:44)
[2021-06-04 05:13] VITALS: TEMP 97.9
[2021-06-04 07:04] LABS: Glucose,Whole Blood 115 mg/dL (75-99)
[2021-06-04] MEDS: INSULIN ASPART (NovoLOG) 100 UNIT/ML VIAL SQ SCH ×2 (07:21→13:15)
[2021-06-04] MEDS: TAMSULOSIN 0.4 MG CAP.ER.24H PO SCH (08:06)
[2021-06-04] MEDS: SERTRALINE 100 MG TAB PO SCH (08:07)
[2021-06-04] MEDS: ASPIRIN 81 MG PO SCH (08:07)
[2021-06-04] MEDS: LORATADINE-PSEUDOEPH 5-120 MG 1 EACH TAB.ER.12H PO SCH (08:07)
[2021-06-04] MEDS: ISOSORBIDE MONONITRATE ER 30 MG TAB.ER.24H PO SCH (08:07)
[2021-06-04] MEDS: METOPROLOL SUCCINATE (ER) 100 MG TAB.ER.24H PO SCH (08:07)
[2021-06-04] MEDS: SODIUM CHLORIDE 0.9% 1,000 ML IV SCH ×3 (08:08→09:04)
[2021-06-04] MEDS ORDERED: hydrALAZINE HCL 20 MG/ML 1 ML VIAL IVP STA (08:24)
--- NOTE | 2021-06-04 10:13 | P.DS ---
Providers Date of admission: 06/02/21 16:47 Expected date of discharge: 06/04/21 Attending physician: Tala Gregory Consults: 06/02/21 17:58 Consult Physician Routine Consulting Provider: He Ellington Consult Reason/Comments: depression Do you want consulting provider notified?: Yes, Notify in am Primary care physician: Helen Keller Hospital Course: This is a 60-year-old male with complex past medical history noted below presented to the hospital with nausea/vomiting and dehydration . Patient was evaluated in the ER and admitted to the hospital for further management of his medical problems noted below. 1. Acute kidney injury. Baseline creatinine unknown. Creatinine improved with aggressive IV fluid hydration. Kidney ultrasound with no evidence of hydroneph rosis. Lasix, hydrochlorothiazide, and losartan were discontinued. Plan to follow up with nephrology in the office in the next 3 days. 2. Hypovolemic hyponatremia 3. Depression without suicidal ideation. Psychiatry consulted and planned to continue current regimen and follow-up with mental health outpatient 4. Type 2 diabetes, this continue home dose of metformin secondary to current creatinine level. Continue insulin regimen otherwise. 5. Coronary artery disease Today, I reviewed his medication list and lab work results. Patient will be discharged home in a stable condition Follow up with PCP and nephrology as directed General: The patient is awake and alert, in no distress Eye: there is normal conjunctiva bilaterally. Neck: The neck is supple, there is no JVD. Cardiovascular: Normal S1-S2, no S3-S4, no murmurs. Respiratory: Lungs clear to auscultation bilaterally Gastrointestinal: Abdomen is soft, nontender Musculoskeletal: There is no pedal edema. Neurological:. Speech is normal. Skin: Skin is warm and dry Patient Condition at Discharge: Stable Plan - Discharge Summary New Discharge Prescriptions: New amLODIPine [Norvasc] 10 mg PO DAILY #30 tablet Continue Sertraline [Zoloft] 100 mg PO DAILY@0800 Metoprolol Succinate (ER) [Toprol XL] 100 mg PO DAILY@0800 Atorvastatin [Lipitor] 80 mg PO HS@2000 Aspirin EC [Ecotrin Low Dose] 81 mg PO DAILY@0800 Melatonin 10 mg PO HS PRN PRN Reason: Insomnia Meclizine [Antivert] 25 mg PO TID PRN PRN Reason: dizziness Tamsulosin HCl [Flomax] 0.4 mg PO DAILY@0800 Insulin Glargine,Hum.rec.anlog [Toujeo Max Solostar] 24 units SQ HS@1999 Isosorbide Mononitrate ER [Imdur] 30 mg PO DAILY@0800 Insulin Lispro [humaLOG Kwikpen] See Protocol SQ AC-TID Chlorhexidine Gluconate [Hibiclens] 1 applic TOPICAL HS@1999 Gabapentin [Neurontin] 100 mg PO HS@1999 ARIPiprazole [Abilify] 2 mg PO HS@1999 Discontinued metFORMIN HCL [Glucophage] 1,000 mg PO AC-BID@0800,1700 Losartan Potassium 100 mg PO DAILY@0800 hydroCHLOROthiazide [Hydrodiuril] 50 mg PO DAILY@0800 Loratadine-Pseudoeph 10-240 mg [Claritin-D 24 Hour] 1 tab PO DAILY@0800 Furosemide [Lasix] 20 mg PO DAILY@0800 Discharge Medication List ARIPiprazole [Abilify] 2 mg PO HS@199906/02/21 [History] Aspirin EC [Ecotrin Low Dose] 81 mg PO DAILY@0800 06/02/21 [History] Atorvastatin [Lipitor] 80 mg PO HS@199906/02/21 [History] Chlorhexidine Gluconate [Hibiclens] 1 applic TOPICAL HS@199906/02/21 [History] Gabapentin [Neurontin] 100 mg PO HS@199906/02/21 [History] Insulin Glargine,Hum.rec.anlog [Toujeo Max Solostar] 24 units SQ HS@199906/02/21 [History] Insulin Lispro [humaLOG Kwikpen] See Protocol SQ AC-TID 06/02/21 [History] Isosorbide Mononitrate ER [Imdur] 30 mg PO DAILY@0800 06/02/21 [History] Meclizine [Antivert] 25 mg PO TID PRN 06/02/21 [History] Melatonin 10 mg PO HS PRN 06/02/21 [History] Metoprolol Succinate (ER) [Toprol XL] 100 mg PO DAILY@0800 06/02/21 [History] Sertraline [Zoloft] 100 mg PO DAILY@0800 06/02/21 [History] Tamsulosin HCl [Flomax] 0.4 mg PO DAILY@0800 06/02/21 [History] amLODIPine [Norvasc] 10 mg PO DAILY #30 tablet 06/04/21 [Rx] Follow up Appointment(s)/Referral(s): Arlette Hernández MD [STAFF PHYSICIAN] - 3 Days Casper Murcia MD [Primary Care Provider] - 1-2 days Discharge Disposition: HOME SELF-CARE
[2021-06-04 11:41] LABS: Glucose,Whole Blood 230 mg/dL (75-99)
[2021-06-04 11:49] VITALS: BP 130/75; PULSE 79; RESP 18
[2021-06-04 12:57] LABS: African American GFR (CKD) 50 (>60 ml/min/1.73 sqM); Anion Gap 7 mmol/L; Blood Urea Nitrogen 27 mg/dL (9-20); Calcium 8.8 mg/dL (8.4-10.2); Carbon Dioxide 25 mmol/L (22-30); Chloride 99 mmol/L (98-107); Glucose 228 mg/dL (74-99); Non-African American GFR(CKD) 44 (>60 ml/min/1.73 sqM); Sodium 131 mmol/L (137-145)
== END 2021-06-04 14:35 | disposition home or self-care (01) ==
LOC: EC 13:55 → INTOOBSV 16:47 → 4SSUR 16:47 → 5NMEDONC 20:42 → UNDODISIN 06-04 14:35
PROVIDERS: ADMIT Internal Medicine; ATTEND Internal Medicine
DX: N17.0 Acute kidney failure with tubular necrosis (principal); E86.0 Dehydration; R11.2 Nausea with vomiting, unspecified; R19.7 Diarrhea, unspecified; E87.1 Hypo-osmolality and hyponatremia; E86.1 Hypovolemia; D64.9 Anemia, unspecified; E87.8 Other disorders of electrolyte and fluid balance, not elsewhere classified; F32.9 Major depressive disorder, single episode, unspecified; E11.40 Type 2 diabetes mellitus with diabetic neuropathy, unspecified; I25.10 Atherosclerotic heart disease of native coronary artery without angina pectoris; F43.10 Post-traumatic stress disorder, unspecified; F41.9 Anxiety disorder, unspecified; G47.30 Sleep apnea, unspecified; H54.7 Unspecified visual loss; H91.90 Unspecified hearing loss, unspecified ear; Z20.822 Contact with and (suspected) exposure to COVID-19; Z95.1 Presence of aortocoronary bypass graft; Z79.899 Other long term (current) drug therapy; Z79.82 Long term (current) use of aspirin; Z79.4 Long term (current) use of insulin; Z79.84 Long term (current) use of oral hypoglycemic drugs; Z86.69 Personal history of other diseases of the nervous system and sense organs; Z98.890 Other specified postprocedural states; Z53.29 Procedure and treatment not carried out because of patient's decision for other reasons
CPT/HCPCS: 96361 ×4; 96374; 99285; 36415; 93005; 80053; 80048 ×2; 82150; 82009; 83690; 83735; 85025 ×2; 81001; 80306; 87635; 76770; G0378 ×4; G0480; J0360; 80320; 96360

== ENCOUNTER 2022-03-12 09:16 | Emergency (ER) | payer OTHER ==
[2022-03-12 09:22] VITALS: RESP 18
--- NOTE | 2022-03-12 10:01 | ED ---
General Adult HPI - General Chief complaint: Recheck/Abnormal Lab/Rx Stated complaint: hypertension Time Seen by Provider: 03/12/22 09:25 Source: patient, EMS, RN notes reviewed Mode of arrival: EMS Limitations: no limitations - History of Present Illness Initial comments: This is a 61-year-old male presents emergency from via EMS from [facility] for hypertension. Patient states that he's been having some medication adjustments. He states over the last few days his blood pressure continues to be elevated. Patient was brought today after he had blood pressure 220/90. Patient denies any current complaints. Denies chest pain shortness breath nausea vomiting no leg pain or leg swelling. Patient states he did take his medication approximately 90 minutes prior arrival. - Related Data Home Medications Medication Instructions Recorded Confirmed ARIPiprazole [Abilify] 2 mg PO HS@199906/02/21 03/12/22 Aspirin EC [Ecotrin Low Dose] 81 mg PO DAILY@0800 06/02/21 03/12/22 Chlorhexidine Gluconate [Hibiclens] 1 applic TOPICAL HS@199906/02/21 03/12/22 Gabapentin [Neurontin] 100 mg PO DAILY PRN 06/02/21 03/12/22 Insulin Lispro [humaLOG Kwikpen] See Protocol SQ AC-TID 06/02/21 03/12/22 Isosorbide Mononitrate ER [Imdur] 30 mg PO DAILY@0800 06/02/21 03/12/22 Meclizine [Antivert] 25 mg PO TID PRN 06/02/21 03/12/22 Sertraline [Zoloft] 100 mg PO DAILY@0800 06/02/21 03/12/22 Tamsulosin HCl [Flomax] 0.4 mg PO DAILY@0800 06/02/21 03/12/22 Ammonium Lactate Cream [Lac-Hydrin 1 applic TOPICAL DAILY PRN 03/12/22 03/12/22 12% Cream] Bromfenac Sodium [Prolensa Ophth 1 drop BOTH EYES HS@199903/12/22 03/12/22 Soln] Ergocalciferol [Vitamin D2 (1250 1,250 mcg PO TH@0800 03/12/22 03/12/22 Mcg = 95929 Iu)] Furosemide [Lasix] 40 mg PO BID@0800,1400 03/12/22 03/12/22 Insulin Glargine [Lantus Vial] 24 unit SQ HS@199903/12/22 03/12/22 Liquacel Grape 30 ml PO BID PRN 03/12/22 03/12/22 Loperamide [Imodium] 2 mg PO TID PRN 03/12/22 03/12/22 Loratadine [Claritin] 10 mg PO DAILY@79903/12/22 03/12/22 Melatonin [Melatonin Dissolving 10 mg PO HS@199903/12/22 03/12/22 Tablet] Metoprolol Succinate [Toprol XL] 50 mg PO DAILY@79903/12/22 03/12/22 Potassium Chloride ER [K-Dur 20] 20 meq PO DAILY@79903/12/22 03/12/22 SILVER sulfADIAZINE Cream 1 applic TOPICAL HS 03/12/22 03/12/22 [Silvadene 1% Cream] Sertraline [Zoloft] 25 mg PO DAILY@79903/12/22 03/12/22 amLODIPine [Norvasc] 10 mg PO DAILY@79903/12/22 03/12/22 calcitrioL [Calcitriol] 0.25 mcg PO MOTUWETHFR@79903/12/22 03/12/22 cloNIDine HCL [Catapres] 0.1 mg PO HS@199903/12/22 03/12/22 metOLazone [Zaroxolyn] 5 mg PO DAILY PRN 03/12/22 03/12/22 prednisoLONE ACETATE 1% OPHTH 1 drop BOTH EYES QID 03/12/22 03/12/22 [Pred Forte 1%] sitaGLIPtin [Januvia] 50 mg PO DAILY@79903/12/22 03/12/22 Allergies Allergy/AdvReac Type Severity Reaction Status Date / Time No Known Allergies Allergy Verified 03/12/22 11:04 Review of Systems ROS Statement: Those systems with pertinent positive or pertinent negative responses have been documented in the HPI. ROS Other: All systems not noted in ROS Statement are negative. Past Medical History Past Medical History: Coronary Artery Disease (CAD), Chest Pain / Angina, Diabetes Mellitus, Eye Disorder, Hearing Disorder / Deafness, Hypertension, Syncope Additional Past Medical History / Comment(s): Sleep Apnea, pt walks with straight cane at home, lives at [place], positional vertigo History of Any Multi-Drug Resistant Organisms: None Reported Past Surgical History: Coronary Bypass/CABG Additional Past Surgical History / Comment(s): CABG in 2014, Cataract surgery Past Psychological History: Anxiety, Depression Smoking Status: Never smoker Past Alcohol Use History: None Reported Past Drug Use History: None Reported - Past Family History Family Family Medical History: No Reported History General Exam General appearance: alert, in no apparent distress Head exam: Present: atraumatic, normocephalic, normal inspection Neck exam: Present: normal inspection. Absent: tenderness, meningismus, lymphadenopathy Respiratory exam: Present: normal lung sounds bilaterally. Absent: respiratory distress, wheezes, rales, rhonchi, stridor Cardiovascular Exam: Present: regular rate, normal rhythm, normal heart sounds. Absent: systolic murmur, diastolic murmur, rubs, gallop, clicks GI/Abdominal exam: Present: soft, normal bowel sounds. Absent: distended, tenderness, guarding, rebound, rigid Extremities exam: Absent: pedal edema Course Vital Signs 03/12/22 03/12/22 03/12/22 09:17 10:19 11:19 Pulse Rate 81 79 60 Respiratory 18 18 18 Rate Blood Pressure 191/97 193/90 192/96 O2 Sat by Pulse 98 98 96 Oximetry 03/12/22 11:53 Pulse Rate 76 Respiratory 18 Rate Blood Pressure 177/95 O2 Sat by Pulse 99 Oximetry Medical Decision Making - Medical Decision Making 61-year-old male presented from for hypertension. Patient has been having recent medication adjustments. Patient's blood pressures improve labs not reveal any significant changes from his baseline he does have baseline kidney disease. Patient has a symptomatic. - Lab Data Result diagrams: 03/12/22 09:55 03/12/22 09:55 Lab Results 03/12/22 03/12/22 03/12/22 Range/Units 09:55 09:55 09:55 WBC 7.0 (3.8-10.6) k/uL RBC 4.55 (4.30-5.90) m/uL Hgb 12.2 L (13.0-17.5) gm/dL Hct 36.2 L (39.0-53.0) % MCV 79.6 L (80.0-100.0) fL MCH 26.9 (25.0-35.0) pg MCHC 33.8 (31.0-37.0) g/dL RDW 14.4 (11.5-15.5) % Plt Count 207 (150-450) k/uL MPV 7.3 Neutrophils % 77 % Lymphocytes % 11 % Monocytes % 8 % Eosinophils % 2 % Basophils % 0 % Neutrophils # 5.4 (1.3-7.7) k/uL Lymphocytes # 0.7 L (1.0-4.8) k/uL Monocytes # 0.6 (0-1.0) k/uL Eosinophils # 0.1 (0-0.7) k/uL Basophils # 0.0 (0-0.2) k/uL Sodium 133 L (137-145) mmol/L Potassium 4.1 (3.5-5.1) mmol/L Chloride 103 (98-107) mmol/L Carbon Dioxide 22 (22-30) mmol/L Anion Gap 8 mmol/L BUN 45 H (9-20) mg/dL Creatinine 2.94 H (0.66-1.25) mg/dL Est GFR (CKD-EPI)AfAm 25 (>60 ml/min/1.73 sqM) Est GFR (CKD-EPI)NonAf 22 (>60 ml/min/1.73 sqM) Glucose 117 H (74-99) mg/dL Calcium 8.5 (8.4-10.2) mg/dL Magnesium 2.1 (1.6-2.3) mg/dL Total Bilirubin 0.5 (0.2-1.3) mg/dL AST 25 (17-59) U/L ALT 16 (4-49) U/L Alkaline Phosphatase 100 (38-126) U/L Troponin I 0.019 (0.000-0.034) ng/mL Total Protein 6.5 (6.3-8.2) g/dL Albumin 3.8 (3.5-5.0) g/dL Disposition Clinical Impression: Hypertension Disposition: HOME SELF-CARE Condition: Stable Instructions (If sedation given, give patient instructions): Hypertension (ED) Additional Instructions: Please contact her PCP regarding medication changes.Please return to the Emergency Department if symptoms worsen or any other concerns. Is patient prescribed a controlled substance at d/c from ED?: No Referrals: Casper Murcia MD [Primary Care Provider] - 1-2 days Time of Disposition: 12:18
[2022-03-12 10:14] LABS: Basophils % (A) 0 %; Eosinophils # (A) 0.1 k/uL (0-0.7); Eosinophils % (A) 2 %; HCT 36.2 % (39.0-53.0); HGB 12.2 gm/dL (13.0-17.5); Lymphocytes # (A) 0.7 k/uL (1.0-4.8); Lymphocytes % (A) 11 %; MCH 26.9 pg (25.0-35.0); MCHC 33.8 g/dL (31.0-37.0); MCV 79.6 fL (80.0-100.0); Mean Platelet Volume 7.3; Monocytes # (A) 0.6 k/uL (0-1.0); Monocytes % (A) 8 %; Neutrophils # (A) 5.4 k/uL (1.3-7.7); Neutrophils % (A) 77 %; Platelet Count 207 k/uL (150-450); RBC 4.55 m/uL (4.30-5.90); RDW 14.4 % (11.5-15.5)
[2022-03-12 10:19] LABS: Albumin 3.8 g/dL (3.5-5.0); Calcium 8.5 mg/dL (8.4-10.2); Magnesium 2.1 mg/dL (1.6-2.3); Potassium 4.1 mmol/L (3.5-5.1); Total Bilirubin 0.5 mg/dL (0.2-1.3); Total Protein 6.5 g/dL (6.3-8.2)
[2022-03-12] MEDS ORDERED: hydrALAZINE HCL 20 MG/ML 1 ML VIAL IVP STA ×2 (10:21→11:23)
[2022-03-12 12:41] VITALS: BP 188/87; PULSE 82
== END 2022-03-12 12:54 | disposition home or self-care (01) ==
LOC: EC 09:16
DX: I10 Essential (primary) hypertension (principal); I25.10 Atherosclerotic heart disease of native coronary artery without angina pectoris; E11.9 Type 2 diabetes mellitus without complications; F41.9 Anxiety disorder, unspecified; F32.A Depression, unspecified; Z79.899 Other long term (current) drug therapy; Z79.4 Long term (current) use of insulin; Z95.1 Presence of aortocoronary bypass graft; Z79.82 Long term (current) use of aspirin
CPT/HCPCS: 99283 ×2; 96374 ×2; 96376 ×2; 99284; 36415; 93005; 80053; 83735; 84484; 85025; J0360

== ENCOUNTER → 2022-05-21 | Outpatient (CLI) | payer OTHER ==
--- NOTE | 2022-05-21 08:53 | CT ---
EXAMINATION TYPE: CT abdomen pelvis wo con DATE OF EXAM: 05/21/2022 HISTORY: Abnormal Weight loss CT DLP: 818 mGycm. Automated Exposure Control for Dose Reduction was Utilized. TECHNIQUE: CT scan of the abdomen and pelvis is performed without oral or IV contrast. COMPARISON: NONE FINDINGS: Within the limitations of a non-contrast study, the following observations are made. LUNG BASES: Small to tiny left pleural effusion. Mild focal linear scarring and/or atelectasis in the right middle lobe and lingula. Coronary artery calcifications are present. LIVER/GB: No biliary dilatation. PANCREAS: Moderate to severe generalized fat replaced atrophy. SPLEEN: No significant abnormality is seen. ADRENALS: No significant abnormality is seen. KIDNEYS: There is cortical thinning bilaterally. Perinephric fat stranding also present bilaterally. Findings consistent product of chronic medical renal disease. Asymmetric enlargement of left kidney v ersus right kidney with prominent perinephric fluid and fat stranding noted. No hydronephrosis or obs tructing ureteral calculi. No intraluminal calculi in the bladder. BOWEL: Suboptimal evaluation without enteric contrast. Small-sized hiatal hernia is present. Stomach poorly distended and thus suboptimally evaluated. Suggestion of diffuse gastric fold prominence. No s uspicious small or large bowel dilatation. Mild colonic prominence throughout the left and transverse colon. GENITAL ORGANS: Enlarged prostate consistent with BPH bulging on bladder base. Symmetric Calcificatio n of the vas deferens incidentally noted. LYMPH NODES: No greater than 1cm abdominal or pelvic lymph nodes are appreciated. OSSEOUS STRUCTURES: Lbuo-bc-gccyxqeb axial joint space loss in both hips. Disc herniation L5-S1 level sagittal image 63. OTHER: Small fat-containing umbilical hernia. Mild calcified plaque of the aorta extends into branch vessels. IMPRESSION: 1. No definitive abnormal mass or adenopathy to suggest neoplasm. 2. Small left pleural effusion is partially imaged and may warrant further clinical workup. 3. Overall nonobstructive bowel gas pattern. Mild colonic fecal stasis. Possible mild to moderate dif fuse gastritis. Correlate clinically. 4. Evidence of chronic medical renal disease. Asymmetric left renal enlargement with increased left-s ided perinephric fluid raises concern for left-sided pyelonephritis, correlate clinically. 5. Enlarged prostate consistent with BPH, correlate clinically. 6. Moderate to severe pancreatic glandular atrophy.
== END | disposition home or self-care (01) ==
LOC: RADCTMAIN 07:49
PROVIDERS: ATTEND Internal Medicine Gastroenterology
DX: R63.4 Abnormal weight loss (principal)
CPT/HCPCS: 74176